=== PATIENT | female | born 2000 | race Native Hawaiian/Other Pacific Islander ===

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

== ENCOUNTER 2022-04-12 08:42 | Emergency (ER) | payer OTHER ==
[2022-04-12] MEDS ORDERED: diphenhydrAMINE 25 MG CAPSULE PO STA (09:18)
[2022-04-12] MEDS ORDERED: FAMOTIDINE 20 MG TABLET PO STA (09:19)
[2022-04-12] MEDS ORDERED: CHERRY SYRUP 10 ML UDC PO ONE (09:19)
[2022-04-12] MEDS ORDERED: DEXAMETHASONE 10 MG/ML VIAL PO STA (09:19)
--- NOTE | 2022-04-12 09:20 | ED Physician Documentation ---
PD HPI SKIN - Stated complaint Stated Complaint: BODY RASH - Chief complaint Chief Complaint: Allergic Rx - History obtained from History obtained from: Patient - History of Present Illness Timing - onset: Last night - Additional information Additional information: 21-year-old female no reported past medical history presents with 1 day of diffuse rash. Patient states that she recently completed a course of amoxicillin after getting her wisdom teeth removed. Her last dose was yesterday, subsequently she began to break out in a rash. It is not pruritic, irritating. Denies shortness of breath, nausea, vomiting, weakness, near syncope, other complaints at this time. This is never happened before. No medications taken for symptoms prior to arrival. Patient states she is here today for evaluation of her rash. States that jaw is healing well from her surgery Review of Systems Ten Systems: 10 systems reviewed and negative Constitutional: denies: Fever, Chills Nose: denies: Rhinorrhea / runny nose, Congestion Throat: denies: Dental pain / toothache, Oral lesions / sores, Sore throat, Swollen tonsils Cardiac: denies: Chest pain / pressure, Palpitations Respiratory: denies: Dyspnea, Cough, Wheezing GI: denies: Abdominal Pain, Nausea, Vomiting Skin: reports: Rash. denies: Lesions, Abrasion (s), Laceration (s) PD PAST MEDICAL HISTORY - Past Medical History Past Medical History: No Cardiovascular: None Respiratory: None Neuro: None Endocrine/Autoimmune: None GI: None CITY CONTR[employer]ER: None : None HEENT: None Psych: None Musculoskeletal: None Derm: None - Past Surgical History Past Surgical History: No - Present Medications Home Medications: Ambulatory Orders Medication Instructions Recorded Confirmed dexAMETHasone [Decadron] 4 mg PO BID #10 tablet 04/12/22 - Allergies Allergies/Adverse Reactions: Allergies Allergy/AdvReac Type Severity Reaction Status Date / Time No Known Drug Allergies Allergy Verified 04/12/22 09:04 - Social History Does the pt smoke?: No Smoking Status: Never smoker Does the pt drink ETOH?: No Does the pt have substance abuse?: No - Immunizations Immunizations are current?: Yes - POLST Patient has POLST: No PD ED PE NORMAL - Vitals Vital signs reviewed: Yes - General General: Alert and oriented X 3, No acute distress, Well developed/nourished - HEENT HEENT: Atraumatic, PERRL, EOMI, Ears normal, Moist mucous membranes, Pharynx benign - Neck Neck: Supple, no meningeal sign, No bony TTP, No adenopathy - Cardiac Cardiac: RRR, No murmur, No gallop, Strong equal pulses - Respiratory Respiratory: No respiratory distress, Clear bilaterally - Abdomen Abdomen: Soft, Non tender, Non distended - Back Back: No CVA TTP, No spinal TTP - Derm Derm: Normal color, Warm and dry, Other (diffuse maculopapular rash, nonpuritic) - Extremities Extremities: No deformity, No tenderness to palpate, Normal ROM s pain, No edema - Neuro Neuro: Alert and oriented X 3, derrick follower 2-12 intact, No motor deficit, No sensory deficit, Normal speech - Psych Psych: Normal mood, Normal affect Results - Vitals Vitals: Vital Signs - 24 hr 04/12/22 04/12/22 09:02 10:40 Temperature 36.5 C 37.0 C Heart Rate 70 69 Respiratory 16 16 Rate Blood Pressure 112/68 111/68 O2 Saturation 100 100 Oxygen O2 Source Room air PD MEDICAL DECISION MAKING - ED course ED course: diffuse maculopapular rash, no other symptoms. Improved with benadryl, pepcid, and steroids. D/C'd with rx for steroids. PCP followup advised. Departure - Departure Disposition: 01 Home, Self Care Clinical Impression: Allergic reaction Qualifiers: Encounter type: initial encounter Qualified Code(s): T78.40XA - Allergy, unspecified, initial encounter Condition: Good Instructions: ED Drug React Allergic, ED Allergic Reaction General Other Prescriptions: dexAMETHasone [Decadron] 4 mg PO BID #10 tablet Discharge Date/Time: 04/12/22 10:42
[2022-04-12 10:41] VITALS: BP 111/68
== END 2022-04-12 10:42 | disposition home or self-care (01) ==
LOC: ED 08:42
DX: R21 Rash and other nonspecific skin eruption (principal); T78.40XA Allergy, unspecified, initial encounter
CPT/HCPCS: 99282; 99283; A9270